=== PATIENT | female | born 1995 ===

== ENCOUNTER 2021-04-05 00:33 | Inpatient (IN) | payer OTHER ==
[~2021-04-05] VITALS: Ht 162.6 cm; Wt 97.1 kg
[2021-04-05] MEDS ORDERED: PRENATAL TABLE1 EAC3 (02:20)
== END 2021-04-07 14:23 | disposition home or self-care (01) | DRG 807 ==
LOC: OB/GYN 00:33 → LDR 00:33 → OB/GYN 02:24
PROVIDERS: ADMIT Specialist; ATTEND Specialist
PROC: 10E0XZZ Delivery of Products of Conception, External Approach (ICD-10-PCS; principal; 2021-04-05)
PROC: 0HQ9XZZ Repair Perineum Skin, External Approach (ICD-10-PCS; 2021-04-05)
PROC: 4A1HXFZ Monitoring of Products of Conception, Cardiac Rhythm, External Approach (ICD-10-PCS; 2021-04-05)
DX: O24.429 Gestational diabetes mellitus in childbirth, unspecified control (principal); O70.0 First degree perineal laceration during delivery; Z37.0 Single live birth; O62.2 Other uterine inertia; O99.02 Anemia complicating childbirth; D64.9 Anemia, unspecified; Z3A.39 39 weeks gestation of pregnancy